=== PATIENT | female | born 1940 | race Caucasian/White ===

== ENCOUNTER → 2022-07-13 10:47 | Outpatient (CLI) | payer OTHER, SELFPAY ==
--- NOTE | 2022-07-13 | DI.MRI.S_ITS ---
PROCEDURE: MR SHOULDER LT WO CON INDICATIONS: Pain in left shoulder TECHNIQUE: Noncontrast oblique coronal T2 fast spin echo with fat saturation, oblique sagittal T1 spin echo and T2 fast spin echo with fat saturation, axial T1 spin echo and T2 fast spin echo with fat saturation through the shoulder. COMPARISON: None. FINDINGS: Image quality: Excellent. Rotator cuff: There is full-thickness rupture of distal supraspinatus at its insertion on the humeral head with up to 2.6 cm medial retraction of torn tendon fibers to the level of acromioclavicular joint. Tendinosis and low-grade articular surface partial-thickness tear involving distal infraspinatus is seen. Distal subscapularis tendinosis is also noted. Sagittal images demonstrate moderate supraspinatus muscle atrophy. Bones and bursae: No bone marrow contusions or fractures. Moderate acromioclavicular joint osteoarthritic changes are seen with joint space narrowing, subchondral sclerosis and downward osteophyte formation depressing on musculotendinous junction of supraspinatus. Moderate to severe glenohumeral joint osteoarthritic changes are seen with near complete loss of joint space, extensive subchondral sclerosis and cyst formation and prominent inferior marginal osteophyte formation. There is moderate amount of joint effusion and subacromial subdeltoid bursal fluid. Capsule and soft tissues: Signal abnormality and contour irregularity throughout left shoulder labrum is seen suggestive of extensive labral tear. The long head of the biceps tendon demonstrates normal location and morphology. The rotator interval appears normal, without fibrosis. The coracohumeral ligament is normal in thickness. IMPRESSION: 1. Moderate to severe glenohumeral joint osteoarthritis and moderate acromioclavicular joint osteoarthritis. No acute fracture or dislocation. Moderate amount of joint effusion and subacromial subdeltoid bursal fluid. 2. Full-thickness rupture involving distal supraspinatus at its insertion on the humeral head with up to 2.6 cm medial retraction of torn tendon fibers to the level of acromioclavicular joint. Low-grade articular surface partial-thickness tear involving distal infraspinatus. Distal subscapularis tendinosis. Moderate supraspinatus muscle atrophy. 3. Global signal abnormality throughout left shoulder labrum consistent with extensive left shoulder labral tear. Dictated by: José Miguel Brown M.D. on 07/13/2022 at 15:21 Approved by: José Miguel rBown M.D. on 07/13/2022 at 15:24
== END ==
PROVIDERS: PCP Physician Assistant Medical; Referring Provider Orthopaedic Surgery Foot and Ankle Surgery; Visit Provider Orthopaedic Surgery Foot and Ankle Surgery
DX: M75.122 Complete rotator cuff tear or rupture of left shoulder, not specified as traumatic (principal); M19.012 Primary osteoarthritis, left shoulder; M25.512 Pain in left shoulder
CPT/HCPCS: 73221

== ENCOUNTER → 2022-10-07 14:07 | Outpatient (CLI) | payer OTHER, SELFPAY | PROVIDERS: PCP Physician Assistant Medical; Referring Provider Orthopaedic Surgery; Visit Provider Orthopaedic Surgery | DX: Z01.818 Encounter for other preprocedural examination (principal) | CPT/HCPCS: 93005 ==

== ENCOUNTER 2022-11-02 09:49 | Day surgery (SDC) | payer OTHER, SELFPAY ==
[2022-10-26 13:46] VITALS: BMI 26.9
[2022-11-02] VITALS (13 sets, daily range): BP systolic 87–139; BP diastolic 46–72; PULSE 60–94; RESP 15–21; TEMP 36.2–36.8; O2SAT 90–98; BMI 26.9; BMI 29.2
--- NOTE | 2022-11-02 06:00 | DI.RAD.S_ITS ---
PROCEDURE: XR SHOULDER LT 1V INDICATIONS: RTSA TECHNIQUE: Single views of the shoulder were acquired. COMPARISON: None. FINDINGS: Bones: Single postoperative view demonstrates total left shoulder arthroplasty. Hardware elements are in expected anatomic alignment. Soft tissues: No suspicious soft tissue calcifications. IMPRESSION: Expected postoperative appearance. Dictated by: Mary Vernon M.D. on 11/02/2022 at 13:41 Approved by: Mary Vernon M.D. on 11/02/2022 at 13:47
[2022-11-02] MEDS: ACETAMINOPHEN 325 MG TABLET 975 MG PO (10:26)
[2022-11-02] MEDS: CELECOXIB 200 MG CAPSULE PO (10:30)
--- NOTE | 2022-11-02 10:38 | PM.PREOP ---
Pre-operative Note Interval Note History & Physical reviewed/Exam performed by Physician: Yes Changes to H&P: No
[2022-11-02] MEDS: VANCOMYCIN 1,000 MG/200 ML PIGGYBACK 200 MG IV (10:41)
[2022-11-02] MEDS: LACTATED RINGERS 1,000 ML 42 ML IV ×2 (10:41→12:03)
--- NOTE | 2022-11-02 11:23 | SUR.PREOP ---
Block completed . Monitoring initiated and maintained throughout procedure. Oxygen and medications given per anesthesiologist. Patient remained stable throughout procedure, no adverse reactions noted.
[2022-11-02 11:28] LABS: COVID19 -Nasal RAPID Negative (Negative)
[2022-11-02] MEDS: CEFAZOLIN 2 GM/100 ML PREMIX 100 ML IV ×2 (11:30→18:59)
[2022-11-02] MEDS: TRANEXAMIC ACID 1,000 MG VIAL 2000 MG INJ ×2 (11:36→12:06)
--- NOTE | 2022-11-02 11:59 | SUR.OPER ---
Beach chair with Schlein shoulder positioner. Lower body on padded OR bed. Head in foam padded head cradle, secured with straps. Non-operative arm secured <90 degrees abduction. Pillow under knees. Safety belt at thigh. Gel pad under heels.
--- NOTE | 2022-11-02 12:54 | PM.OP.1 ---
Operative Date/Time/Diagnoses Date of procedure: 11/02/22 Time of procedure: 12:54 Pre-op diagnosis: Left shoulder rotator cuff tear arthropathy Post-op diagnosis: same Procedure & Clinicians Procedure: Left reverse total shoulder replacement Same procedure as scheduled: Yes Indications: The patient is had chronic left shoulder pain unresponsive to nonoperative therapies. Radiographic studies have revealed changes consistent with a massive rotator cuff tear and arthritis. They have elected to proceed with reverse total shoulder replacement after discussion of the risks benefits and alternatives. Risks discussed included but were not limited to: Failure to improve, instability, infection, nerve damage, deep venous thrombosis, pulmonary embolism, stroke, coma, myocardial infarction and . Surgeon: Morgan Carter [employer] Product Development Manager: Abdias Dale Click Yes if Unassisted: No Anesthesia Type: General, Peripheral nerve block and Local Operative Notes Findings: Large rotator cuff tear with significant arthritic change in the shoulder. Closure Type: primary Specimen(s): none sent Prosthetic devices, grafts, tissues, transplants, or devices: Implants used in this procedure were manufactured by the [employer] and included an RSP reverse total shoulder system with a 30 mm glenoid base plate, 314 mm locking bolts and 118 mm locking bolt, a-4 mm x 32 mm diameter glenoid head with retaining screw, a size 10 small stature humeral stem and a 32 mm neutral E + polyethylene humeral socket. Applied: implant(s) Estimated Blood Loss (mL): 150 Blood products transfused: none Procedure in detail: The patient was seen in the preoperative area where they identified the left shoulder as the operative site and this was marked with my initials. They received preoperative antibiotics and underwent the induction of an interscalene block. They were taken to the operating room and placed on the operating room table in a supine position with the underwent the induction of a general anesthetic. There were then repositioned in the ?beach chair? position using a dedicated positioner. All pressure points were well padded. The knees were slightly bent to prevent tension on the sciatic nerves. A time study clerk-out was performed. The left arm was prepared from the fingertips to the base of the neck with ChloraPrep in the usual fashion and draped through sterile drapes. An approximately 15 cm incision was created starting at the clavicle just above the coracoid and going to the deltoid insertion. The deltopectoral interval was used to access the shoulder taking the vein to the medial side. The vein was protected throughout the case. The upper 1 cm of the pectoralis major was released. The biceps tendon was identified and used as a guide to releasing the remaining subscapularis. The biceps itself was tenodesed over the pectoralis tendon using a suture. The subscapularis was tagged for later repair. The shoulder was dislocated and a proximal humeral osteotomy performed using an extramedullary guide. A proximal humeral protector was then placed. Retractors were placed access the glenoid. A 360 degree release was performed of the remaining subscapularis with care being taken to protect the axillary nerve. The soft tissues were removed circumferentially around the glenoid. The guide was used to drill the guide hole in the center of the inferior glenoid. The tap was placed and used as a guide for the reamer. The tap was then removed and the glenoid base plate inserted. The peripheral locking screws were then placed through the appropriate guide. A trial glenoid head was applied. We then turned our attention to the humerus. The proximal humeral protector was removed. Cylindrical reamers were used to size the canal. Broaching was then performed beginning with a small broach and working up until a line to line fit with the reamer was obtained. The guide for the proximal metaphyseal reamer was then applied and the metaphysis was reamed appropriately. The trial metaphyseal portion of the body was then applied to the broach. Trial reductions were performed and the size of the glenoid head and the cup were optimized. Stability was checked in maximal internal and external rotation and range of motion was checked to allow access to the top of the head, internal rotation to an excess of 50? in the ?scarecrow position? and the ability to reach the groin. The appropriate final prosthetic components were then opened. The glenoid head was impacted into position and checked for rotational and axial stability before placing the set screw. Drill holes for repair of the subscapularis were performed and sutures placed. The humeral prosthetic was then impacted into position using bone graft from the humeral head around the metaphysis as she had poor bone quality.. The humeral cup was placed. The joint was relocated and irrigated. The subscapularis was repaired to the previously placed sutures. The deltopectoral interval was reapproximated with 0 Vicryl. Subcutaneous layer was closed with interrupted 3-0 Vicryl and skin with a running 3 0 V lock suture. Subcutaneous tissues were then infiltrated with 0.5% Marcaine for postoperative pain control. An Aquacel Ag dressing was applied and the patient's arm was placed in a sling. The patient was then transferred to the recovery room in good condition having tolerated the procedure well. The services of a skilled surgical coordinator were necessary during this procedure to provide positioning, exposure and retraction to protect vital structures. Without the assistance of Mr. Dale, the procedure could not have been completed in a safe, expedient manner. Complications: none Post-operative Condition: stable Disposition: PACU Plan for aftercare: The patient will be maintained overnight the hospital for observation and pain management. She will be discharged tomorrow to home. She will be restricted to using her hand in front of her body below shoulder level to lift 1-2 lb for the 1st 6 weeks.
[2022-11-02] MEDS: BUPIVACAINE 0.25% (PF) VIAL 30 ML INJ (13:10)
[2022-11-02] MEDS: EPINEPHrine 1 MG/ML 0.15 MG INJ (13:12)
[2022-11-02] MEDS: LACTATED RINGERS 1,000 ML 100 ML IV (14:34)
[2022-11-02] MEDS: IBUPROFEN 400 MG TABLET PO ×3 (14:37→20:59)
--- NOTE | 2022-11-02 15:09 | PT-IP ANOTE ---
Pt has low blood pressure (states blood pressure runs low usually but not this low): 94/42 when lying supine, left hand still unable to move fingers. Told pt we would try again in the morning when pt can move fingers and blood pressure is hopefully higher. Pt did state she does not use AD baseline, does not have stairs, and daughter will be staying with her through the weekend.
--- NOTE | 2022-11-02 15:25 | PC.NURSE ---
Pt arrived from PACU this afternoon. VSS, afebrile on 2 LNC. She is alert and OX3. She denies pain to shoulder, and reports numbness to L hand, able to wiggle fingers, grasp and pulses +2 to LUE. L arm in sling, aquacel to L shoudler C/D/I.She is tolerating po intake well denies n/v. IVF LR running at 125 ml/hr. Slightly soft BP's SBP 90's-low 100's and DBP 40's-50's. She denies dizziness and encouraged to drink adequate water. PT /OT defering to see patient until tomorrow. Daughter supportive at bedside. Frequent rounding and continuous monitoring
[2022-11-02] MEDS: ACETAMINOPHEN 325 MG TABLET 650 MG PO ×2 (17:30→23:54)
[2022-11-02] MEDS: ASPIRIN EC 81 MG TABLET PO (20:59)
[2022-11-02] MEDS: BISACODYL 5 MG TABLET PO (20:59)
[2022-11-02] MEDS: DOCUSATE 100 MG CAPSULE PO (20:59)
[2022-11-02] MEDS: VIT C/E/ZN/COPPR/LUTEIN/ZEAXAN CAPSULE 1 CAP PO (20:59)
[2022-11-02] MEDS: ZOLPIDEM 5 MG TABLET 2.5 MG PO (23:52)
[2022-11-03] MEDS: LACTATED RINGERS 1,000 ML 100 ML IV (00:46)
[2022-11-03] MEDS: IBUPROFEN 400 MG TABLET PO ×3 (00:46→08:39)
[2022-11-03] MEDS: CEFAZOLIN 2 GM/100 ML PREMIX 100 ML IV (03:29)
[2022-11-03 03:50] VITALS: BP 121/62; PULSE 72; RESP 17; TEMP 36.3; O2SAT 92
[2022-11-03] MEDS: SODIUM CHLORIDE 0.9% FLUSH 10 ML IV (04:25)
[2022-11-03] MEDS: ACETAMINOPHEN 325 MG TABLET 650 MG PO (05:34)
[2022-11-03 05:54] LABS: Hematocrit 34.5 % (36-46); Hemoglobin 11.4 g/dL (12.0-16.0)
[2022-11-03] MEDS: LEVOTHYROXINE 137 MCG TABLET PO (06:03)
[2022-11-03 08:00] VITALS: BP 113/56; PULSE 71; RESP 16; TEMP 36.1; O2SAT 93
[2022-11-03] MEDS: ASPIRIN EC 81 MG TABLET PO (08:39)
[2022-11-03 09:23] VITALS: O2SAT 98
--- NOTE | 2022-11-03 10:45 | PT.IIE ---
Current Diagnoses Other specific arthropathies, not elsewhere classified, left shoulder (11/02/22) Primary osteoarthritis, left shoulder (11/02/22) Complete rotator cuff tear or rupture of left shoulder, not specified as traumatic (11/02/22) Surgery Performed Operation Date: 11/02/22 11:15 Actual Procedures p Total Shoulder Arthroplasty - Reverse(Left) - Morgan Carter MD Surgical History (Last Reviewed 11/03/22 @ 11:10 by Emi Aguirre PA-C) History of total left knee replacement (~1999) History of total replacement of right shoulder joint (2007) History of total right knee replacement (~1999) Hx of gastric bypass (2006) Hx of hernia repair Medical History (Last Reviewed 11/03/22 @ 11:10 by Emi Aguirre PA-C) Arthritis Easy bruisability Headache Left shoulder pain Macular degeneration MRSA (methicillin resistant Staphylococcus aureus) Sinus drainage Physical Therapy Inpatient Evaluation/Re-Eval M1 PT/OT-IP Prior Functional Status Start: 11/03/22 09:10 Freq: NEEDED Status: Discharge Protocol: Document 11/03/22 10:07 LRN (Rec: 11/03/22 17:03 JOHN [id number]) Medical Review Prior Functional Status Medical History Reviewed Yes Diet/Fluid Consistency Regular Communication Normal Mobility and Gait Independent w/o assistive device Activities of Daily Living and IADL's Independent Social History Household Members spouse,none Living Arrangements Mobile home Home Environment Standard Height Toilet,Walk in Shower,Tub/Shower,Ramp Additional Social History Comment Lives in [place] alone, daughter lives 5' away. M2 PT-IP Current Condition Start: 11/03/22 09:10 Freq: NEEDED Status: Discharge Protocol: Document 11/03/22 10:07 LRN (Rec: 11/03/22 17:03 JOHN [id number]) Physical Therapy Current Condition Current Condition Evaluation Date 11/03/22 Treatment Diagnosis OA L shdr, RC arthropathy, non -traumatic complete tear L RC, s/p reverse TS Onset Date 11/02/22 M3 PT-IP Subjective Start: 11/03/22 09:10 Freq: NEEDED Status: Discharge Protocol: Document 11/03/22 10:07 LRN (Rec: 11/03/22 17:03 JOHN [id number]) Subjective Physical Therapy Visit Type Type Initial Evaluation Visit Start Time 10:07 Visit Stop Time 10:41 Total Visit Minutes 34 Notes 1 Physical Therapy Visit Comments Patient Comments Pt sitting at start of therapy and happy to be able to do therapy and looking forward to going home. Patient Goals Pt goal is to be able to go home and recover from surgery. Therapy Pain Assessment Pain When Pain Assessed At Rest Pain Present Pain Present Pain Reported Location Left shoulder Intensity 5 Scale Used Numeric (0 - 10) M4 PT-IP Mobility and Gait Start: 11/03/22 09:10 Freq: NEEDED Status: Discharge Protocol: Document 11/03/22 10:07 LRN (Rec: 11/03/22 17:03 N [id number]) PT-Transfer Assessment Sit to and From Stand Sit to and from Stand Independent Transfers Transfer Destination Chair Transfer Technique Walk to and from chair Transfer Ability Level of Assist Standby Assistance Comments Mobility Comments Pt able to stand without difficulty, dizziness, SOB. Gait Assessment Gait Gait Assistance Required: Independent,Standby Assistance Distance (Feet) 100 Able to Maintain Weight Bearing Status Yes During Gait Assistive Devices Assistive Device None Gait Deviations General Gait Pattern Decreased Stride Length Factors Limiting Gait Function Factors Limiting Gait Function Decreased Activity Tolerance, Pain Comments Gait Comments Pt was wearing protective hospital socks/slippers. Pt noted she could walk better if she had shoes on. PT-Balance Assessment Sitting Balance and Reactions Static Sitting Balance Ability Normal Dynamic Sitting Balance Ability Good Standing Balance and Reactions Static Standing Balance Ability Normal Dynamic Standing Balance Ability Good M5 PT-IP Objective Assessments Start: 11/03/22 09:10 Freq: NEEDED Status: Discharge Protocol: Document 11/03/22 10:07 LRN (Rec: 11/03/22 17:03 LRN [id number]) Gross Range of Motion Upper Extremity ROM Impairments R UE - WFL L UE - Arm in sling Lower Extremity ROM Assessment Within Functional Limits Strength Upper Extremity Strength Assessment Left Impaired Shoulder 0 Elbow 3- Wrist 3- Hand 3 Lower Extremity Strength Assessment Within Functional Limits Comments Strength Comments L arm in sling with movement restrictions; therefore L shoulder strength not formally tested. Sensation Assessment Comments Sensation Comments Pt had reported decreased sensation in L hand. Other Assessments Other Other Assessments Vitals: Start of therapy: SpO2 94%, HR 73, BP 114/61. End of therapy: SpO2 95%, HR 72, BP 117/6. M6 PT-IP Treatment Start: 11/03/22 09:10 Freq: NEEDED Status: Discharge Protocol: Document 11/03/22 10:07 LRN (Rec: 11/03/22 17:03 LRN [id number]) Physical Therapy Treatment Exercises Exercises Shoulder Pendulums,Elbow Flexion/Extension,Wrist ROM, Hand ROM Education Education Provided Safety Other Treatments Other Treatment Performed Pt educated in Movement precautions: flex 90, no AB/ ER and IR to body. Pt I/s to keep arm next to body for active elbow, wrist, hand AROM . I/S pt to discuss with surgeon how she can put eyedrops in her eye independently. M7 PT-IP Assessment and Plan Start: 11/03/22 09:10 Freq: NEEDED Status: Discharge Protocol: Document 11/03/22 10:07 LRN (Rec: 11/03/22 17:03 LRN [id number]) PT Summary Assessment and Plan Potential Rehabilitation Potential Excellent Status of Condition at Evaluation Evolving Summary Impairments Pain,ROM,Strength,Activity Tolerance Progress Towards Goals Safe For Discharge Assessment Summary Pt is doing very well and was able to ambulate safely with initially SBA and at end independently. Pt was very stable on her feet and with gait and is safe for SBA> Independent ambulation. Her BP, SpO2 and HR were all w/in acceptable ranges. The pt was able to perform pendulums correctly after education, but would benefit from further post op PT for ROM other than the L shoulder. The pt transfers sit<>stand and the pt reported prior to therapy she had been in/out of bed w/o complaints of difficulty. The pt is therefore safe to go home with daughter to assist with putting in eye drops. Goals Gait Goal Independent,Standby Assistance Gait Distance 100 ft Other Goals Pt educated in HEP: Pendulums , L arm proper positioning w/ ex's and active elbow/wrist/ hand ROM. Days to Meet Goals 1 Frequency of Treatment Frequency Of Treatment Discharge Precautions Shoulder Precautions Sling,PROM,Internal Rotation to Body,No External Rotation, No Abduction,Forward Flexion to 90 degrees,Pendulums Other Precautions FF to 90 deg's as PROM Recommendations To Nursing Amount of Assist Needed Independent,Standby Assistance Discharge Recommendations PT Discharge Recommendations Home with Assistance Other Discharge Recommendations Pt to speak to surgeon regarding ability to place eyedrops in eye independently. Equipment Needed for Home Before None Discharge Transportation Needs at Discharge Private Vehicle
--- NOTE | 2022-11-03 11:05 | P.DS_ITS ---
History of Present Illness History of Present Illness Date Patient Seen: 11/03/22 Time Patient Seen: 06:30 Chief complaint: OPB Narrative: Patient is awake and alert this morning lying comfortably in bed, icing her shoulder. She is looking forward to discharging to home today with her . Denies nausea, vomiting, fever, chills. Discharge Providers Provider Discharge Date: 11/03/22 Primary care physician: Maday Marks PA-C Consults: 11/02/22 13:39 Consult to Discharge Planning Routine Comment: Consult to Physical Therapy Evaluate & Treat Comment: Physician Instructions: pendulums, PROM 90 FF, 0 Abd, 0 ER, IR to body Discharge provider: Emi Aguirre PA-C Summary Hospital Course Discharge Diagnosis: Status post left reverse total shoulder arthroplasty Hospital Course: Operative Date/Time/Diagnoses Date of procedure: 11/02/22 Time of procedure: 12:54 Pre-op diagnosis: Left shoulder rotator cuff tear arthropathy Post-op diagnosis: same Procedure & Clinicians Procedure: Left reverse total shoulder replacement Same procedure as scheduled: Yes Indications: The patient is had chronic left shoulder pain unresponsive to nonoperative therapies.? Radiographic studies have revealed changes consistent with a massive rotator cuff tear and arthritis. They have elected to proceed with reverse total shoulder replacement after discussion of the risks benefits and alternatives. Risks discussed included but were not limited to:? Failure to improve, instability, infection, nerve damage, deep venous thrombosis, pulmonary embolism, stroke, coma, myocardial infarction and . Surgeon: Morgan Carter Rolling Machine Operator: Abdias Dale Click Yes if Unassisted: No Anesthesia Type: General, Peripheral nerve block and Local Operative Notes Findings: Large rotator cuff tear with significant arthritic change in the shoulder. Closure Type: primary Specimen(s): none sent Prosthetic devices, grafts, tissues, transplants, or devices: Implants used in this procedure were manufactured by the [employer] and included an RSP reverse total shoulder system with a 30 mm glenoid base plate, 314 mm locking bolts and 118 mm locking bolt, a-4 mm x 32 mm diameter glenoid head with retaining screw, a size 10 small stature humeral stem and a 32 mm neutral E + polyethylene humeral socket. Applied: implant(s) Estimated Blood Loss (mL): 150 Blood products transfused: none Status at Discharge Cognitive/behavioral status at discharge: oriented Functional status at discharge: independent ambulation Overall status at discharge: patient is progressing back to baseline Exam Vital Signs (past 8 hours): - 11/03/22 03:50 11/03/22 08:00 11/03/22 09:23 Temperature 97.3 F L 96.9 F L Pulse Rate 72 71 Respiratory Rate 17 16 Blood Pressure 121/62 113/56 L Pulse Oximetry 92 93 98 Oxygen Delivery Method Room Air Oxygen Flow Rate 0 Oxygen Delivery Method Room Air Oxygen Flow Rate 0 Narrative Exam Narrative: Awake, alert, and oriented. Intraoperative left shoulder bandage clean, dry, and intact. Strength and sensation intact bilateral upper extremities as allowed by starts to left TSA restrictions. Objective Labs 11/03/22 05:36 Labs: Laboratory Results - last 24 hr 11/02/22 11/03/22 10:12 05:36 Hgb 11.4 L Hct 34.5 L SARS-CoV-2 (PCR) Negative [facility] Medical History Arthritis Easy bruisability Headache Left shoulder pain Macular degeneration MRSA (methicillin resistant Staphylococcus aureus) Sinus drainage Surgical History History of total left knee replacement (~1999) History of total replacement of right shoulder joint (2007) History of total right knee replacement (~1999) Hx of gastric bypass (2006) Hx of hernia repair Social History household members: none Smoking Status: Former smoker alcohol intake: current Discharge Assessment & Plan Assessment and Plan Assessment: Patient progressing as expected after left reverse total shoulder arthroplasty. Plan of Treatment: Plan for discharge to home today once safe and cleared by physical therapy. Discharge Plan Discharge Plan Patient Disposition: Home Provider Discharge Comment: Discharge to home Discharge orders & Medications Discharge Orders: Discharge (Order); Ordered 11/03/22 Ordered By: Emi Aguirre Prescriptions: New aspirin 81 mg Tablet,Delayed Release (Dr/Ec) 81 mg PO BID Qty: 56 0RF ibuprofen 400 mg Tablet 400 mg PO Q4HR Qty: 90 0RF Continued multivitamin Tablet 1 tab PO DAILY levothyroxine 137 mcg Tablet 137 mcg PO DAILY gelatin 650 mg Capsule 1,300 mg PO DAILY spironolactone 100 mg Tablet 100 mg PO DAILY acetaminophen 500 mg Tablet 500 - 1,500 mg PO DAILY PRN (Reason: Pain) ferrous sulfate [iron] 325 mg (65 mg iron) Tablet 325 mg PO DAILY zolpidem 5 mg Tablet 2.5 mg PO BEDTIME PRN (Reason: Sleep) PreserVision AREDS-2 250-90-40-1 mg Capsule 1 tab PO BID potassium citrate 99 mg Capsule 99 mg PO DAILY bisacodyl [Dulcolax (bisacodyl)] 5 mg Tablet,Delayed Release (Dr/Ec) 5 mg PO BEDTIME Follow up/Referrals: Morgan Carter MD [Physician] - As previously scheduled Maday Marks PA-C [Primary Care Provider] - Diet/Activity/Treatments Diet: Diet as Tolerated Activity: Restricted use of hand to in front of body below shoulder level, no lifting more than 2 pounds for 6 weeks Cold/Heat Therapy: Ice to shoulder as needed Skin/Wound/Dressing Care Report to your healthcare provider any signs of infection, such as:: chills, fever, night sweats, increased pain, unusual drainage and unusual redness Dressing: Keep dressing clean, dry, and intact until 2 week postoperative follow up with Orthopedics. If dressing becomes wet please call our office for dressing change. Visit Report/Discharge Packet Instructions: DI for Shoulder Replacement Stand Alone Forms: Patient Portal/API, Surgery Discharge Discharge Data Primary Care Provider: Maday Marks Attending Provider: Morgan Carter Quality VTE Deep Vein Thrombosis/Pulmonary Embolism Present on Admission: No
--- NOTE | 2022-11-03 11:06 | PC.NURSE ---
Pt is A&OX3, VSS, afebrile on RA. She declines wanting to take spironolactone this a.m. DBP 50's patient states she has been voiding frequently. She tolerates breakfast well, and is ambulating with steady gait to BR w/ SBA. She reports pain is well controlled 2-5/10 with scheduled tylenol and ibuprofen only. Aquacel to left shouldere is c/d/i, shoulder sling supportive and in place.PT works with patient and she is cleared for discharge home with daughter. She verbalizes understanding of medications, activity limitations, s/sx of infection/complications, as well as follow up appointment. She is escorted via w/ch to private vehiclew ith daughter this a.m.with all of her belongings at approximately 1110 a.m.
--- NOTE | 2022-11-03 13:30 | CM.DANOTE ---
Discharge Planning/Care Management CM Discharge Assessment Start: 11/03/22 13:12 Freq: Status: Active Protocol: Document 11/03/22 13:12 DENISE (Rec: 11/03/22 13:30 DENISE [id number]) Discharge Planning Assessment Assigned [employer] Duty Manager BHARATH Murdock DPOA/Assigned Designee Name quinton Faust Contact Information [phone] Advance Directives? No History Provided By Patient,Medical Record Prior Living Arrangements Mobile home Household Members spouse,none Type of transporation used prior to Relies on Others admit Independent with ADL's Yes Is patient alert and oriented? Yes Patient/Family Preference OP PT Therapy Barriers to Discharge No Comment Patient is an 82 yo resident of [place], POD 1 from left reverse total shoulder arthroplasty. Patient planned for return home w/daughter to assist through the weekend and has been cleared by therapies for this plan No needs identified from this CM team Discharge Plan Home Transportation Arrangement Family Referrals Initiated None needed
== END 2022-11-03 11:00 | disposition home or self-care (01) ==
LOC: OR 09:51 → AC 09:52
PROVIDERS: PCP Physician Assistant Medical; Referring Provider Orthopaedic Surgery; Visit Provider Orthopaedic Surgery
PROC: (CPT 23472; principal; 2022-11-02 11:15)
DX: M75.122 Complete rotator cuff tear or rupture of left shoulder, not specified as traumatic (principal); M19.012 Primary osteoarthritis, left shoulder
CPT/HCPCS: 23472; 36415; 64450; 73020; 85014; 85018; 87635; 94760; 97110; 97162; C1776; C9803; J0171; J0690; J1100; J1885; J2405; J2704; J3010; J3490

== ENCOUNTER → 2023-03-13 13:29 | Outpatient (CLI) | payer OTHER, SELFPAY ==
[2022-11-02 13:40] VITALS: BMI 29.2
--- NOTE | 2023-03-13 | DI.US.S_ITS ---
PROCEDURE: US ABD AORTA ANEURYSM SCREEN INDICATIONS: F/U CHIROPRACTIC XR SHOWING ABDOMINAL AORTIC CALCIFICATIONS TECHNIQUE: Real time scanning was performed of the aorta and iliac arteries, with image documentation. COMPARISON: None. FINDINGS: Aorta: Proximal aortic diameter measures 2.3 cm. Mid-aorta measures 1.7 cm. Distal aortic diameter is 1.9 cm. Iliac arteries: Right common iliac artery measures 0.2 cm. Left common iliac artery measures 1.3 cm. IMPRESSION: Negative for aneurysm. Dictated by: Satnam Nicholson M.D. on 03/13/2023 at 14:37 Approved by: Satnam Nicholson M.D. on 03/13/2023 at 14:37
== END ==
PROVIDERS: PCP Physician Assistant Medical; Referring Provider Chiropractor Independent Medical Examiner; Visit Provider Chiropractor Independent Medical Examiner
DX: Z13.6 Encounter for screening for cardiovascular disorders (principal); R93.5 Abnormal findings on diagnostic imaging of other abdominal regions, including retroperitoneum
CPT/HCPCS: 76706

== ENCOUNTER → 2023-08-02 | Outpatient (CLI) | payer OTHER, SELFPAY ==
[2022-11-02 13:40] VITALS: BMI 29.2
--- NOTE | 2023-08-02 12:43 | DI.RAD.S_ITS ---
PROCEDURE: XR DEXA AXIAL SKELETON INDICATIONS: age COMPARISON: None. FINDINGS: This blank DEXA report has been sent in error by the PACS system. The correct and complete report will be forthcoming in 1-2 days. Thank you for your patience and understanding. Dictated by: Alexandre Humphries M.D. on 08/02/2023 at 15:46 Approved by: Alexandre Humphries M.D. on 08/02/2023 at 15:46
== END ==
PROVIDERS: PCP Internal Medicine; Referring Provider Internal Medicine; Visit Provider Internal Medicine
DX: N95.8 Other specified menopausal and perimenopausal disorders (principal); M81.0 Age-related osteoporosis without current pathological fracture
CPT/HCPCS: 77080

== ENCOUNTER 2023-11-09 14:21 | Emergency (ER) | payer OTHER, SELFPAY ==
[2022-11-02 13:40] VITALS: BMI 29.2
[2023-11-09] VITALS (15 sets, daily range): BP systolic 124–178; BP diastolic 58–78; PULSE 64–79; RESP 18–25; TEMP 36.9; O2SAT 93–98; BMI 27.7
--- NOTE | 2023-11-09 14:36 | DI.RAD.S_ITS ---
PROCEDURE: XR CHEST 1V INDICATIONS: chest pain TECHNIQUE: One view of the chest was acquired. COMPARISON: None. FINDINGS: Surgical changes and devices: Bilateral shoulder arthroplasties. Lungs and pleura: Lungs are clear. No pleural effusions or pneumothorax. Mediastinum: Mediastinal contours appear normal. Heart size is normal. Bones and chest wall: No suspicious bony lesions. Overlying soft tissues appear unremarkable. IMPRESSION: No acute cardiopulmonary abnormality is seen. Dictated by: Tatyana Telles MD, PhD on 11/09/2023 at 15:19 Approved by: Tatyana Telles MD, PhD on 11/09/2023 at 15:19
[2023-11-09 14:50] LABS: Add Manual Diff / Slide Review NO; Basophils Absolute Auto 100 /uL (0-100); Eosinophils Absolute Auto 0 /uL (0-450); Eosinophils Percent Auto 0.4 % (2-4); Hematocrit 42.3 % (36-46); Lymphocytes Absolute Auto 1100 /uL (1100-4500); Lymphocytes Percent Auto 13.9 % (25-40); Mean Corpuscular HGB Conc 33.2 % (30-36); Mean Corpuscular Hemoglobin 31.3 PG (26-34); Mean Corpuscular Volume 94.3 fL (80-100); Monocytes Absolute Auto 400 /uL (0-900); Monocytes Percent Auto 5.4 % (3-14); Neutrophils Absolute Auto 6400 /uL (1500-7000); Neutrophils Percent Auto 79.3 % (50-75); Platelet Count 190 X10^3/uL (150-400); Red Blood Cell Count 4.49 X10^6/uL (4.0-5.2); Red Cell Distribution Width 13.8 % (11.6-14.8); White Blood Cell Count 8.1 X10^3/uL (4.5-11.0)
[2023-11-09 14:59] LABS: PTT Partial Thromboplastin Tim 34 SECONDS (25.1-36.5)
[2023-11-09 15:04] LABS: Alanine Aminotransferase 21 IU/L (<35); Albumin 4.3 g/dL (3.5-5.0); Albumin Globulin Ratio 1.3 (1.0-2.8); Alkaline Phosphatase 108 U/L (38-126); Aspartate Aminotransferase 25 IU/L (14-36); BUN Creatinine Ratio 20.6 (6-22); Bilirubin Total 0.6 mg/dL (0.2-1.3); Blood Urea Nitrogen 14 mg/dL (7-17); Calcium 9.6 mg/dL (8.4-10.2); Carbon Dioxide 27 mmol/L (22-32); Chloride 108 mmol/L (98-107); Creatine Kinase 52 U/L (30-135); Estimated Glomerular Filt Rate > 60 mL/min (>60); Globulin 3.2 g/dL (1.7-4.1); Glucose 126 mg/dL (80-110); HEMOLYSIS < 15 (0-50); Lipase 71 U/L (23-300); Magnesium 2.3 mg/dL (1.6-2.3); Potassium 3.9 mmol/L (3.4-5.1); Sodium 138 mmol/L (137-145); Total Protein 7.5 g/dL (6.3-8.2)
[2023-11-09 15:15] LABS: Troponin I < 0.012 ng/mL (0.01-0.034)
--- NOTE | 2023-11-09 17:57 | PC.NURSE ---
Patient has known macular degeneration. Patient reports having the wet version in right eye and dry version in her left eye.
--- NOTE | 2023-11-09 18:15 | ED.DIZZY ---
HPI - Dizziness General Chief Complaint: Dizziness Stated Complaint: dizziness, weakness, eye is red Time Seen by Provider: 11/09/23 17:56 Source: patient Mode of arrival: Wheelchair History of Present Illness HPI Narrative: 83-year-old female with history of vertigo presents by private vehicle from home for dizziness and feeling whooshy. Patient states she has intermittent flare-ups of vertigo secondary to ?a crystal in my ear?. She states she is normally able to perform maneuvers at home that relocate the crystal and improve her vertigo. This morning she woke up feeling not quite herself and with vertigo. She tried to do her usual maneuvers but this did not seem to help her vertigo. Vertigo is worse when sitting upright and when moving her head from [id number]-cm-[id number]. When she sits still she does not feel dizzy or like the room is spinning. She is never tried any other medications or therapies for her vertigo in the past. Of note, patient also reports waking up with some redness underneath her right eye. She states she has had a ?bump? on the inside of her right eyelid that her eye doctor told her was a fat pad. She was not remember any trauma or other injuries to her eye. She denies any change in her vision. She was concerned that the redness under her eye may be related to her vertigo Related Data Home Medications Medication Instructions Recorded Confirmed acetaminophen 500 mg tablet 500 - 1,500 mg PO DAILY PRN Pain 10/26/22 11/02/22 ferrous sulfate 325 mg (65 mg 325 mg PO DAILY 10/26/22 11/02/22 iron) tablet (iron) gelatin 650 mg capsule 1,300 mg PO DAILY 10/26/22 11/02/22 levothyroxine 137 mcg tablet 137 mcg PO DAILY 10/26/22 11/02/22 multivitamin 1 tab PO DAILY 10/26/22 11/02/22 potassium citrate 99 mg capsule 99 mg PO DAILY 10/26/22 11/02/22 spironolactone 100 mg tablet 100 mg PO DAILY 10/26/22 11/02/22 vit C 250 mg-vit E 90 mg-zinc 40 1 tab PO BID 10/26/22 11/02/22 mg-copper 1 en-ynjkzz-rtpoqv capsule (PreserVision AREDS-2) zolpidem 5 mg tablet 2.5 mg PO BEDTIME PRN Sleep 10/26/22 11/02/22 bisacodyl 5 mg tablet,delayed 5 mg PO BEDTIME 11/02/22 11/02/22 release (Dulcolax (bisacodyl)) Previous Rx's Medication Instructions Recorded aspirin 81 mg tablet,delayed 81 mg PO BID #56 tabs 11/03/22 release ibuprofen 400 mg tablet 400 mg PO Q4HR #90 tabs 11/03/22 meclizine 50 mg tablet 50 mg PO BID PRN dizziness #30 tabs 11/09/23 Allergies Allergy/AdvReac Type Severity Reaction Status Date / Time lidocaine AdvReac Severe Pain when Verified 11/02/22 10:25 injected in eye Review of Systems Review of Systems Narrative: Negative except as noted above Patient History Medical History Macular degeneration Easy bruisability Left shoulder pain Arthritis Sinus drainage Headache MRSA (methicillin resistant Staphylococcus aureus) Surgical History History of total left knee replacement (~1999) History of total right knee replacement (~1999) Hx of hernia repair 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) Social History household members: spouse and none Smoking Status: Former smoker alcohol intake: current Smoking Status: Former smoker alcohol intake frequency: 3 or more drinks per day Substance Use Type: does not use Exam Initial Vital Signs Initial Vital Signs: Vital Signs Temperature 98.5 F 11/09/23 14:30 Pulse Rate 75 11/09/23 14:30 Respiratory Rate 18 11/09/23 14:30 Blood Pressure 162/68 H 11/09/23 14:30 Pulse Oximetry 96 11/09/23 14:30 Oxygen Delivery Method Room Air 11/09/23 14:30 Const: Awake, alert, no acute distress, nontoxic appearing Eyes: PERRL, EOMI, mild erythema under R eye without evidence of cellulitis. Cardiac: regular rate, regular rhythm RESP: unlabored, clear bilaterally, no wheezing GI: Atraumatic, soft, nontender, nondistended, no rebound, no guarding MSK: Atraumatic, full range of motion, pulses equal Skin: Warm, Dry, intact, no rashes Neuro: AO x3, CN II-XII grossly intact, moves all extremities - vertigo when moved from reclining position to sitting upright Course Orders Ordered: ED Orders 11/09/23 18:52 CT angio head and neck Stat CT head/brain wo con Stat Discontinued Medications Sodium Chloride (Normal Saline 0.9%) 1,000 mls @ 1,000 mls/hr IV BOLUS ONE Stop: 11/09/23 19:51 Last Infusion: 11/09/23 20:19 Dose: Infused Documented By: Admin: 11/09/23 19:00 Dose: 1,000 mls/hr Documented By: Meclizine HCl (Meclizine Hcl 12.5 Mg Tablet) 50 mg PO NOW ONE Stop: 11/09/23 18:53 Last Admin: 11/09/23 19:27 Dose: 50 mg Documented By: Meclizine HCl (Meclizine Hcl 12.5 Mg Tablet) 50 mg PO NOW ONE Stop: 11/09/23 21:40 Last Admin: 11/09/23 21:47 Dose: 50 mg Documented By: Ondansetron HCl (Ondansetron 4 Mg/2 Ml Inj) 4 mg IV NOW PRN PRN Reason: Nausea And Vomiting Ondansetron HCl (Ondansetron 4 Mg Odt) 4 mg SL NOW PRN PRN Reason: Nausea And Vomiting Vital Signs Vital signs: Vital Signs - 8 hr 11/09/23 19:30 11/09/23 20:00 11/09/23 20:17 Temperature Pulse Rate 78 79 Respiratory Rate 18 20 Blood Pressure 138/63 Pulse Oximetry 96 98 Oxygen Delivery Method 11/09/23 20:17 11/09/23 20:30 11/09/23 20:30 Temperature Pulse Rate 76 73 Respiratory Rate 18 20 Blood Pressure 133/61 Pulse Oximetry 95 95 Oxygen Delivery Method 11/09/23 22:04 Temperature 98.5 F Pulse Rate 76 Respiratory Rate 18 Blood Pressure 178/78 H Pulse Oximetry 97 Oxygen Delivery Method Room Air MDM - Dizziness Differential Diagnosis Differential diagnosis: Likely adverse reaction to drug, benign paroxysmal positional vertigo and orthostatic hypotension Lab Data 11/09/23 14:39 11/09/23 14:39 Labs: Lab Results 03/07/24 Range/Units 14:39 WBC 8.1 (4.5-11.0) X10^3/uL RBC 4.49 (4.0-5.2) X10^6/uL Hgb 14.0 (12.0-16.0) g/dL Hct 42.3 (36-46) % MCV 94.3 (80-100) fL MCH 31.3 (26-34) PG MCHC 33.2 (30-36) % RDW 13.8 (11.6-14.8) % Plt Count 190 (150-400) X10^3/uL Neut % (Auto) 79.3 H (50-75) % Lymph % (Auto) 13.9 L (25-40) % [place] % (Auto) 5.4 (3-14) % Eos % (Auto) 0.4 L (2-4) % Baso % (Auto) 1.0 (0-2) % Neut # (Auto) 6400 (5600-8302) /uL Lymph # (Auto) 1100 (5289-0310) /uL [place] # (Auto) 400 (0-900) /uL Eos # (Auto) 0 (0-450) /uL Baso # (Auto) 100 (0-100) /uL PT 11.0 (9.4-12.5) SECONDS INR 1.0 (0.9-1.3) APTT 34 (25.1-36.5) SECONDS Sodium 138 (137-145) mmol/L Potassium 3.9 (3.4-5.1) mmol/L Chloride 108 H (98-107) mmol/L Carbon Dioxide 27 (22-32) mmol/L BUN 14 (7-17) mg/dL Creatinine 0.68 (0.52-1.04) mg/dL Estimated GFR > 60 (>60) mL/min BUN/Creatinine Ratio 20.6 (6-22) Glucose 126 H (80-110) mg/dL Calcium 9.6 (8.4-10.2) mg/dL Magnesium 2.3 (1.6-2.3) mg/dL Total Bilirubin 0.6 (0.2-1.3) mg/dL AST 25 (14-36) IU/L ALT 21 (<35) IU/L Alkaline Phosphatase 108 (38-126) U/L Total Creatine Kinase 52 (30-135) U/L Troponin I < 0.012 (0.01-0.034) ng/mL Total Protein 7.5 (6.3-8.2) g/dL Albumin 4.3 (3.5-5.0) g/dL Globulin 3.2 (1.7-4.1) g/dL Albumin/Globulin Ratio 1.3 (1.0-2.8) Lipase 71 (23-300) U/L Urine Dip Bedside Urine Glucose Negative Bedside Urine Bilirubin - Negative Bedside Urine Ketone - Negative Urine Specific [place] 1.015 Bedside Urine Occult Blood - Negative Bedside Urine pH 6.0 Bedside Urine Protein - Negative Bedside Urine Urobilinogen - Negative Bedside Urine Nitrite - Negative Bedside Urine Leukocytes - Negative Esterase Imaging Data CT scan - head: Radiologist's Impression: PROCEDURE: CT HEAD/BRAIN WO CON INDICATIONS: VERTIGO, NEW PATTERN TECHNIQUE: Noncontrast 4.5 mm thick angled axial sections acquired from the foramen magnum to the vertex, with coronal and sagittal reformats. For radiation dose reduction, the following was used: automated exposure control, adjustment of mA and/or kV according to patient size. COMPARISON: None. FINDINGS: Image quality: Diagnostic CSF spaces: Basal cisterns are patent. Lateral ventricles are symmetric. Volume: Vascular calcifications. Periventricular white matter disease is commonly seen with chronic microangiopathy. Volume loss is present. These findings are moderate Brain: No intracranial hemorrhage. Zapata-white differentiation is grossly maintained. Prominent CSF space in the posterior portion of the posterior fossa, likely chronic Craniofacial structures: Partially seen moderate mucosal thickening of the maxillary sinus. Partially empty sella. IMPRESSION: No acute intracranial abnormality. If there is high concern for infarct, consider MRI Dictated by: Brennan Sheth M.D. on 11/09/2023 at 20:09 Approved by: Brennan Sheth M.D. on 11/09/2023 at 20:10 PROCEDURE: CT ANGIO HEAD AND NECK INDICATIONS: VERTIGO, NEW PATTERN TECHNIQUE: After the administration of intravenous contrast, 1 mm thick sections acquired from the aortic arch through the [place] of Heart. 3-dimensional mwhgmft-ylkmblcjw-ricvtoxzzg (MIP) and/or volume rendering reformats were acquired of the central intracranial vasculature and neck separately. For radiation dose reduction, the following was used: automated exposure control, adjustment of mA and/or kV according to patient size. COMPARISON: None. FINDINGS: Image quality: Diagnostic HEAD ANGIOGRAPHY: Anterior circulation: ICAs: Vsbv-dl-njifwsbj cavernous and supraclinoid calcifications ACAs: Normal and symmetric MCAs: Normal and symmetric AComm: No aneurysm Venous sinuses: Not well evaluated on this study, no definite occlusive thrombus Posterior circulation: Dominance: Right Vertebral arteries: No stenosis or occlusion. No aneurysm. Basilar artery: Patent, fed by the right vertebral primarily PComms: Dominant left posterior communicating artery index editor: Unremarkable NECK ANGIOGRAPHY: Aortic arch and subclavian arteries: Mild atherosclerotic calcifications CCAs: No stenosis, occlusion, or aneurysm. ICA origins (by NASCET criteria): Mild bilateral calcifications, less than 50% narrowing ICAs: No stenosis, occlusion or aneurysm. ECAs: Origins are patent. Vertebral arteries: Origins are partially obscured by metallic artifact. Vertebral arteries appear patent Soft tissues: No significant mass, aneurysm, or lymphadenopathy Lung apices: No pneumothorax Bones: Degenerative changes. Moderate mucosal thickening of the right maxillary sinus. No significant mastoid effusion or middle ear opacification on limited CT evaluation. IMPRESSION: No large vessel occlusion or high-grade stenosis. Other findings as above. If there is high concern for infarct, consider MRI evaluation. Any quantitative measurements of stenosis were performed using NASCET criteria. Dictated by: Brennan Sheth M.D. on 11/09/2023 at 20:10 Approved by: Brennan Sheth M.D. on 11/09/2023 at 20:16 ECG Data Interpretation: Normal sinus rhythm at 70 beats per minute, left axis deviation, no ST T wave changes, normal TN MDM Narrative Medical decision making narrative: Well-appearing patient with vertigo since waking up that was not relieved with her usual maneuvers to ?relocate inner ear crystals?. While sitting normally in bed patient is not have vertigo, it is exacerbated by sitting up and moving her head from voaz-sh-mtsl. Will trial meclizine and IV fluids, however based on patient's age as well as change in her vertigo symptoms we will order CT brain as well as CT angio of the head and neck. CT noncontrast of the brain as well as CT angio of the brain showed no acute abnormalities. Patient says that her vertigo resolved after meclizine and IV fluids, she was ambulatory to and from the restroom with the use of a walker. Patient states that she normally ambulates with a cane but feels very steady with a walker and requests a walker for home use. All lab and imaging findings were discussed with the patient and her family member at bedside. Recommended that patient continue to attempt her maneuvers at home and will send patient with a prescription of meclizine for home use. She was advised to follow up closely with her primary care physician. Counseled patient to return if meclizine does not control her vertigo or symptoms worsened despite therapy. ED return precautions discussed at bedside. Patient expressed understanding of the plan and is in agreement at this time. All questions answered at the time of discharge. Discharge Plan Departure Patient Disposition: Home Clinical Impression: Vertigo Instructions: DI for Vertigo Activity Restrictions/Additional Instructions: Take meclizine if you were feeling dizzy. You can start with 25 mg and increase as needed up to 50 mg if you are continuing to feel vertigo. Follow up with your primary care physician. Prescriptions: New meclizine 50 mg tablet 50 mg PO BID PRN (Reason: dizziness) Qty: 30 0RF No Action multivitamin Tablet 1 tab PO DAILY levothyroxine 137 mcg Tablet 137 mcg PO DAILY gelatin 650 mg Capsule 1,300 mg PO DAILY spironolactone 100 mg Tablet 100 mg PO DAILY acetaminophen 500 mg Tablet 500 - 1,500 mg PO DAILY PRN (Reason: Pain) ferrous sulfate [iron] 325 mg (65 mg iron) Tablet 325 mg PO DAILY zolpidem 5 mg Tablet 2.5 mg PO BEDTIME PRN (Reason: Sleep) PreserVision AREDS-2 250-90-40-1 mg Capsule 1 tab PO BID potassium citrate 99 mg Capsule 99 mg PO DAILY bisacodyl [Dulcolax (bisacodyl)] 5 mg Tablet,Delayed Release (Dr/Ec) 5 mg PO BEDTIME aspirin 81 mg Tablet,Delayed Release (Dr/Ec) 81 mg PO BID Qty: 56 0RF ibuprofen 400 mg Tablet 400 mg PO Q4HR Qty: 90 0RF Referrals: Jaime Franco MD [Primary Care Provider] - Stand Alone Forms: Patient Portal/API
--- NOTE | 2023-11-09 18:52 | DI.CT.S_ITS ---
PROCEDURE: CT ANGIO HEAD AND NECK INDICATIONS: VERTIGO, NEW PATTERN TECHNIQUE: After the administration of intravenous contrast, 1 mm thick sections acquired from the aortic arch through the [place] of Heart. 3-dimensional stnmukg-jjsaclqrn-oybrbgshxi (MIP) and/or volume rendering reformats were acquired of the central intracranial vasculature and neck separately. For radiation dose reduction, the following was used: automated exposure control, adjustment of mA and/or kV according to patient size. COMPARISON: None. FINDINGS: Image quality: Diagnostic HEAD ANGIOGRAPHY: Anterior circulation: ICAs: Bccw-cw-jkothmmj cavernous and supraclinoid calcifications ACAs: Normal and symmetric MCAs: Normal and symmetric AComm: No aneurysm Venous sinuses: Not well evaluated on this study, no definite occlusive thrombus Posterior circulation: Dominance: Right Vertebral arteries: No stenosis or occlusion. No aneurysm. Basilar artery: Patent, fed by the right vertebral primarily PComms: Dominant left posterior communicating artery correspondence school instructor: Unremarkable NECK ANGIOGRAPHY: Aortic arch and subclavian arteries: Mild atherosclerotic calcifications CCAs: No stenosis, occlusion, or aneurysm. ICA origins (by NASCET criteria): Mild bilateral calcifications, less than 50% narrowing ICAs: No stenosis, occlusion or aneurysm. ECAs: Origins are patent. Vertebral arteries: Origins are partially obscured by metallic artifact. Vertebral arteries appear patent Soft tissues: No significant mass, aneurysm, or lymphadenopathy Lung apices: No pneumothorax Bones: Degenerative changes. Moderate mucosal thickening of the right maxillary sinus. No significant mastoid effusion or middle ear opacification on limited CT evaluation. IMPRESSION: No large vessel occlusion or high-grade stenosis. Other findings as above. If there is high concern for infarct, consider MRI evaluation. Any quantitative measurements of stenosis were performed using NASCET criteria. Dictated by: Brennan Sheth M.D. on 11/09/2023 at 20:10 Approved by: Brennan Sheth M.D. on 11/09/2023 at 20:16
--- NOTE | 2023-11-09 18:52 | DI.CT.S_ITS ---
PROCEDURE: CT HEAD/BRAIN WO CON INDICATIONS: VERTIGO, NEW PATTERN TECHNIQUE: Noncontrast 4.5 mm thick angled axial sections acquired from the foramen magnum to the vertex, with coronal and sagittal reformats. For radiation dose reduction, the following was used: automated exposure control, adjustment of mA and/or kV according to patient size. COMPARISON: None. FINDINGS: Image quality: Diagnostic CSF spaces: Basal cisterns are patent. Lateral ventricles are symmetric. Volume: Vascular calcifications. Periventricular white matter disease is commonly seen with chronic microangiopathy. Volume loss is present. These findings are moderate Brain: No intracranial hemorrhage. Zapata-white differentiation is grossly maintained. Prominent CSF space in the posterior portion of the posterior fossa, likely chronic Craniofacial structures: Partially seen moderate mucosal thickening of the maxillary sinus. Partially empty sella. IMPRESSION: No acute intracranial abnormality. If there is high concern for infarct, consider MRI Dictated by: Brennan Sheth M.D. on 11/09/2023 at 20:09 Approved by: Brennan Sheth M.D. on 11/09/2023 at 20:10
[2023-11-09] MEDS: SODIUM CHLORIDE 0.9% 1,000 ML 1000 ML IV (19:00)
[2023-11-09] MEDS: MECLIZINE HCL 12.5 MG TABLET 50 MG PO ×2 (19:27→21:47)
== END 2023-11-09 22:05 | disposition home or self-care (01) ==
PROVIDERS: Emergency Medicine; Emergency Provider Emergency Medicine; PCP Internal Medicine
DX: R42 Dizziness and giddiness (principal); R07.9 Chest pain, unspecified
CPT/HCPCS: 36415; 70450; 70496; 70498; 71045; 80053; 81003; 82550; 83690; 83735; 84484; 85025; 85610; 85730; 93005; 93010; 96360; 99284; Q9967

== ENCOUNTER → 2024-12-20 13:42 | Outpatient (CLI) | payer OTHER, SELFPAY ==
[2022-11-02 13:40] VITALS: BMI 29.2
--- NOTE | 2024-12-20 13:43 | DI.ECHO.S_ITS ---
[facility]---------+ [facility] : : [address] : : [place] : : [id number] : : Phone: [phone] Echocardiogram Report + + :Name: CRISTHIAN CHAVEZ V Study Date: 12/20/2024 Height: 60 in : :Hospital ReadingLocation: Weight: 145 lb : : Gender: Female BSA: 1.6 m2 : :: 1940 Age: 84 yrs BP: 141/81 mmHg: :Reason For Study: GENERALIZED EDEMA : :Ordering Physician: JIM, : :STEPHANIE Performed By: Clark Kat : :Referring: STEPHANIE FERNANDEZ : + + Interpretation Summary Normal biventricular size and systolic function. LVEF is 65-70% Batrial enlargement. There is mild prolapse of the anterior mitral valve leaflet associated with mild mitral regurgitation. Mild tricuspid regurgitation. Mild pulmonary hypertension is noted. Other findings as below. No previous echo images are available for comparison. Procedure: A two-dimensional transthoracic echocardiogram with color flow and Doppler was performed. The study quality was technically good. There is no prior echocardiogram noted for this patient. The patient was in normal sinus rhythm during the exam. Left Ventricle: The left ventricle is normal in size. There is normal left ventricular wall thickness. There is no ventricular septal defect visualized. The ejection fraction is estimated to be 65-70%. There are no focal wall motion abnormalities. Diastolic parameters suggest a relaxation abnormality of the left ventricle, consistent with probable normal filling pressures. Right Ventricle: The right ventricle is normal in size and function. Atria: The left atrium is moderately dilated. Right atrial size is normal. There is no Doppler evidence for an interatrial shunt. Mitral Valve: There is mild mitral annular calcification. The mitral valve leaflets appear mildly thickened, but open well. The mitral valve leaflets are mildly calcified. There is prolapse of the anterior mitral valve leaflet. There is mild mitral regurgitation. Aortic Valve: The aortic valve is trileaflet. The aortic valve is mildly calcified. The aortic valve opens well. No aortic regurgitation is present. Tricuspid Valve: The tricuspid valve leaflets are thin and pliable. There is mild tricuspid regurgitation. The right ventricular systolic pressure is estimated to be at least 33 mmHg based on an estimated right atrial pressure of 3 mm Hg. Pulmonic Valve: The pulmonic valve leaflets are thin and pliable; valve motion is normal. There is trace pulmonic regurgitation. Great Vessels: The aortic root is normal size. The dimensions of the ascending aorta are normal. The pulmonary artery is normal size. The IVC is of normal diameter and collapses greater than 50% with a sniff. This suggests a low right atrial pressure of 3 mm Hg. Pericardium/ Pleura There is no pericardial effusion. There is no pleural effusion. MMode/2D Measurements & Calculations LVIDd: 4.0 cm LVOT diam: 1.9 cm LVIDs: 2.6 cm Ao root diam: 3.5 cm FS: 34.0 % asc Aorta Diam: 3.6 cm EPSS: 0.66 cm IVSd: 1.0 cm LVPWd: 1.0 cm LV marshall. diameter/BSA (cm/m^2): 2.4 LV sys. diameter/BSA (cm/m^2): 1.6 LA A2 area: 20.0 cm2 RA long axis: 4.0 cm LA A4 area: 19.7 cm2 RA area: 10.1 cm2 LA length (vol): 5.1 cm RA vol: 21.8 ml LA vol: 65.1 ml RA : 13.4 ml/m2 LA vol index: 40.0 ml/m2 IVC diam: 1.8 cm RVD1 (basal): 3.7 cm RVD2 (mid): 2.9 cm TAPSE: 2.4 cm Doppler Measurements & Calculations Ao V2 max: 154.6 cm/sec LVOT Max Ammon: 102.1 cm/sec Ao V2 mean: 110.3 cm/sec LV V1 max P.2 mmHg Ao max P.6 mmHg LV V1 VTI: 22.8 cm Ao mean P.5 mmHg KELLEN(I,D): 1.9 cm2 Ao V2 VTI: 33.6 cm KELLEN(V,D): 1.9 cm2 sev ratio: 0.68 KELLEN indexed to BSA (cm^2/m^2): 1.2 MV E max ammon: 77.4 cm/sec TR max ammon: 275.9 cm/sec MV A max ammon: 95.2 cm/sec TR max P.4 mmHg MV E/A: 0.81 PA V2 max: 104.1 cm/sec Med Peak E' Ammon: 4.3 cm/sec PA V2 mean: 70.3 cm/sec E/E' med: 18.0 PA mean P.2 mmHg Lat Peak E' Ammon: 5.8 cm/sec PA pr(Accel): 53.3 mmHg E/E' lat: 13.5 E/e' average: 15.7 MV dec time: 0.32 sec SV(LVOT): 65.1 ml Reading Physician:04:[id number] PM
== END ==
PROVIDERS: PCP Internal Medicine; Referring Provider Student in an Organized Health Care Education/Training Program; Visit Provider Student in an Organized Health Care Education/Training Program
DX: R60.1 Generalized edema (principal); I34.0 Nonrheumatic mitral (valve) insufficiency; I27.20 Pulmonary hypertension, unspecified; I07.1 Rheumatic tricuspid insufficiency; I34.1 Nonrheumatic mitral (valve) prolapse
CPT/HCPCS: 93306

== ENCOUNTER → 2025-02-12 16:58 | Outpatient (CLI) | payer OTHER, SELFPAY ==
[2022-11-02 13:40] VITALS: BMI 29.2
--- NOTE | 2025-02-12 17:04 | DI.RAD.S_ITS ---
PROCEDURE: XR ANKLE LT MIN 3V INDICATIONS: ROUTINE TECHNIQUE: 3 views of the ankle were acquired. COMPARISON: None. FINDINGS: Bones: No fractures or dislocations. Ankle mortise is normally aligned. No suspicious bony lesions. Tibiotalar joint space narrowing with osteophytosis. Plantar calcaneal enthesophyte. Soft tissues: Small tibiotalar joint effusion. Achilles tendon appears normal. IMPRESSION: Moderate ankle osteoarthritis, with a small effusion. Dictated by: Christo Graham M.D. on 02/13/2025 at 10:31 Approved by: Christo Graham M.D. on 02/13/2025 at 10:32
[2025-02-12 17:40] LABS: Hematocrit 42.5 % (36-46); Hemoglobin 13.8 g/dL (12.0-16.0); Mean Corpuscular HGB Conc 32.5 % (30-36); Mean Corpuscular Hemoglobin 30.6 PG (26-34); Mean Corpuscular Volume 94.1 fL (80-100); Platelet Count 210 X10^3/uL (150-400); Red Blood Cell Count 4.51 X10^6/uL (4.0-5.2); Red Cell Distribution Width 13.4 % (11.6-14.8); White Blood Cell Count 7.7 X10^3/uL (4.5-11.0)
[2025-02-12 18:00] LABS: Alanine Aminotransferase 20 IU/L (<35); Albumin 4.9 g/dL (3.5-5.0); Alkaline Phosphatase 116 U/L (38-126); Aspartate Aminotransferase 29 IU/L (14-36); BUN Creatinine Ratio 21.1 (6-22); Bilirubin Total 0.7 mg/dL (0.2-1.3); Blood Urea Nitrogen 20 mg/dL (7-17); Calcium 10.2 mg/dL (8.4-10.2); Carbon Dioxide 27 mmol/L (22-32); Chloride 100 mmol/L (98-107); Cholesterol 210 mg/dL (140-199); Estimated Glomerular Filt Rate 59 mL/min (>60); Globulin 2.4 g/dL (1.7-4.1); Glucose 101 mg/dL (70-99); HEMOLYSIS < 15 (0-50); Potassium 4.4 mmol/L (3.4-5.1); Sodium 135 mmol/L (137-145); Total Protein 7.3 g/dL (6.3-8.2); Triglycerides 94 mg/dL (35-150)
[2025-02-12 18:07] LABS: HDL Cholesterol 109 mg/dL (40-60); LDL Cholesterol Calculated 82 mg/dL (<100)
[2025-02-12 18:15] LABS: Free T4, Direct Thyroxine 1.01 ng/dL (0.78-2.19)
[2025-02-12 18:29] LABS: TSH w/ Reflex to FT4 3.06 uIU/mL (0.47-4.68)
== END ==
LOC: RAD 16:59
PROVIDERS: PCP Internal Medicine; Referring Provider Family Medicine; Visit Provider Family Medicine
DX: Z00.00 Encounter for general adult medical examination without abnormal findings (principal); M19.072 Primary osteoarthritis, left ankle and foot; M25.472 Effusion, left ankle; M25.572 Pain in left ankle and joints of left foot; R29.898 Other symptoms and signs involving the musculoskeletal system; E07.9 Disorder of thyroid, unspecified; Z13.29 Encounter for screening for other suspected endocrine disorder; Z13.21 Encounter for screening for nutritional disorder; Z13.228 Encounter for screening for other metabolic disorders; Z13.0 Encounter for screening for diseases of the blood and blood-forming organs and certain disorders involving the immune mechanism; Z86.39 Personal history of other endocrine, nutritional and metabolic disease
CPT/HCPCS: 36415; 73610; 80053; 80061; 84439; 84443; 84590; 85027